=== PATIENT | female | born 2000 | race Caucasian/White ===

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

== ENCOUNTER 2022-08-08 10:54 | Emergency (ER) | payer MEDICAID ==
[~2022-08-08] VITALS: Ht 160 cm; Wt 93.0 kg
[2022-08-08 11:05] VITALS: BP 134/85
[2022-08-08] MEDS ORDERED: LORA10TA64 MT (12:53)
[2022-08-08] MEDS ORDERED: TOPUD MT (12:53)
== END 2022-08-08 13:40 | disposition home or self-care (01) ==
LOC: ER 10:54
DX: B34.9 Viral infection, unspecified (principal); R06.03 Acute respiratory distress
CPT/HCPCS: 99281

== ENCOUNTER 2022-08-22 13:58 | Emergency (ER) | payer MEDICAID ==
[~2022-08-22] VITALS: Ht 160 cm; Wt 80.0 kg
[~2022-08-22 13:58] MED LIST: LORA10TA64 MT; TOPUD MT
[2022-08-22 14:03] VITALS: BP 141/86
== END 2022-08-22 18:10 | disposition home or self-care (01) ==
LOC: ER 13:58
DX: Z00.00 Encounter for general adult medical examination without abnormal findings (principal)
CPT/HCPCS: 99281

== ENCOUNTER 2023-06-04 19:12 | Emergency (ER) | payer MEDICAID ==
[~2023-06-04] VITALS: Ht 160 cm; Wt 100.0 kg
[2023-06-04 20:00] VITALS: O2SAT 99
[2023-06-05] MEDS ORDERED: ACETAMINOPHEN 500MG TABLET PO ONE
[2023-06-05] MEDS ORDERED: CYCLOBENZAPRINE 10MG TABLET PO ONE
[2023-06-05] MEDS ORDERED: KETOROLAC 30MG/ML VIAL IM ONE
[2023-06-05 00:04] LABS: CLARITY URINE CLOUDY (CLEAR); COLOR URINE YELLOW (YELLOW); GLUCOSE URINE NEGATIVE (NEGATIVE); KETONES URINE NEGATIVE (NEGATIVE); LEUKOCYTE ESTERASE URINE 2+ (NEGATIVE); NITRITE URINE NEGATIVE (NEGATIVE); OCCULT BLOOD URINE 3+ (NEGATIVE); PH URINE 5.5 (4.5-8.0); PROTEIN URINE NEGATIVE (NEGATIVE); SPECIFIC GRAVITY URINE 1.018 (1.005-1.030); UROBILINOGEN URINE 0.2 E.U./dL (0.2-1.0)
[2023-06-05] MEDS ORDERED: LIDO700A15 TP (00:37)
[2023-06-05] MEDS ORDERED: METH-653 MT (00:37)
[2023-06-05] MEDS ORDERED: IBUP-2029 MT (00:37)
[2023-06-05 00:54] VITALS: BP 104/80; PULSE 80; RESP 18; TEMP 98
[2023-06-05] MEDS ORDERED: CEPH500C2 MT (00:58)
[2023-06-05 02:23] LABS: SQUAMOUS EPITHELIAL CELL URINE FEW /lpf (RARE/1+)
[2023-06-05 02:27] LABS: BACTERIA URINE TRACE
== END 2023-06-05 00:56 | disposition home or self-care (01) ==
LOC: ER 19:12
DX: M54.9 Dorsalgia, unspecified (principal); Z79.899 Other long term (current) drug therapy
CPT/HCPCS: 99283; 81003; 81025; 87086; 96372; J1885